=== PATIENT | male | born 1980 | race Caucasian/White ===

== ENCOUNTER 2020-03-02 14:01 | Emergency (ER) | payer MEDICAID ==
[~2020-03-02] VITALS: Ht 167.6 cm; Wt 91.0 kg
[2020-03-02 14:10] VITALS: BP 130/93
[2020-03-02] MEDS ORDERED: KETOROLAC 30MG/ML VIAL IM ONE (14:15)
== END 2020-03-02 15:18 | disposition home or self-care (01) ==
LOC: ER 14:01
DX: S39.82XA Other specified injuries of lower back, initial encounter (principal); M47.816 Spondylosis without myelopathy or radiculopathy, lumbar region; Y93.89 Activity, other specified; X50.9XXA Other and unspecified overexertion or strenuous movements or postures, initial encounter; Y92.89 Other specified places as the place of occurrence of the external cause
CPT/HCPCS: 72100; 96372; 99283; J1885